=== PATIENT | female | born 1990 | race Caucasian/White ===

== ENCOUNTER 2017-02-25 01:59 | Emergency (ER) | payer OTHER ==
[~2017-02-25] VITALS: Ht 170.2 cm; Wt 81.6 kg
--- NOTE | 2017-02-25 02:04 | PHYS DOC ---
Adult General Chief Complaint Chief Complaint: FLANK PAIN HPI HPI Patient is a 26 year old female who presents with fully pain. She states it started Tuesday and then yesterday it was getting worse. She states it hurts more when she urinates. She denies any dysuria. She states last night which went to bed is been getting worse. She feels nauseated. She took Tylenol for discomfort. She states she's never had a kidney stone before in her mom's had him. She denies any abdominal discomfort, vaginal bleeding or discharge. Review of Systems Review of Systems Constitutional: Denies fever or chills [] Eyes: Denies change in visual acuity, redness, or eye pain [] HENT: Denies nasal congestion or sore throat [] Respiratory: Denies cough or shortness of breath [] Cardiovascular: No additional information not addressed in HPI [] GI: Denies abdominal pain, nausea, vomiting, bloody stools or diarrhea [] : Denies dysuria or hematuria [] Musculoskeletal: Denies joint pain, positive for right-sided flank pain [] Integument: Denies rash or skin lesions [] Neurologic: Denies headache, focal weakness or sensory changes [] Endocrine: Denies polyuria or polydipsia [] All other systems were reviewed and found to be within normal limits, except as documented in this note. Current Medications Current Medications Current Medications Medications (Trade) Dose Ordered Sig/Tucker Start Time Stop Time Status Last Admin Dose Admin Info (Do NOT chart on this entry -- for MONITORING) 1 each PRN DAILY PRN 02/25/17 03:00 02/27/17 02:59 Iohexol (Omnipaque 300 Mg/ml) 75 ml 1X ONCE 02/25/17 03:30 02/25/17 03:31 DC 02/25/17 03:23 75 ML Morphine Sulfate 4 mg PRN Q15MIN PRN 02/25/17 02:30 02/26/17 02:29 02/25/17 02:41 4 MG Ondansetron HCl (Zofran) 4 mg 1X ONCE 02/25/17 03:00 02/25/17 03:01 DC 02/25/17 02:40 4 MG Sodium Chloride 1,000 ml @ 1,000 mls/hr Q1H 02/25/17 03:00 02/25/17 03:59 DC 02/25/17 02:41 1,000 MLS/HR Allergies Allergies Allergies Coded Allergies Type Severity Reaction Last Updated Verified Penicillins Allergy Intermediate RASH 02/25/17 Yes hydromorphone Allergy Intermediate RASH 02/25/17 Yes avocado Allergy Mild 02/25/17 Yes banana Allergy Mild 02/25/17 Yes peanut Allergy Mild 02/25/17 Yes tomato Allergy Mild 02/25/17 Yes Physical Exam Physical Exam Constitutional: Well developed, well nourished, no acute distress, non-toxic appearance. [] HENT: Normocephalic, atraumatic, bilateral external ears normal, oropharynx moist, no oral exudates, nose normal. [] Eyes: PERRLA, EOMI, conjunctiva normal, no discharge. [] Neck: Normal range of motion, no tenderness, supple, no stridor. [] Cardiovascular:Heart rate regular rhythm, no murmur [] Lungs & Thorax: Bilateral breath sounds clear to auscultation [] Abdomen: Bowel sounds normal, soft, no tenderness, no masses, no pulsatile masses. [] Skin: Warm, dry, no erythema, no rash. [] Back: No tenderness, positive for right sided CVA tenderness. [] Extremities: No tenderness, no cyanosis, no clubbing, ROM intact, no edema. [] Neurologic: Alert and oriented X 3, normal motor function, normal sensory function, no focal deficits noted. [] Psychologic: Affect normal, judgement normal, mood normal. [] Current Patient Data Vital Signs Vital Signs Date Time Temp Pulse Resp B/P (MAP) Pulse Ox O2 Delivery O2 Flow Rate FiO2 02/25/17 02:41 22 99 Room Air 02/25/17 02:09 97.5 93 121/77 (92) 97.5 Lab Values Laboratory Tests Test 02/25/17 02:10 02/25/17 02:14 02/25/17 02:29 Urine Collection Type Unknown Urine Color Yellow Urine Clarity Clear Urine pH 5.5 Urine Specific [place] 1.025 Urine Protein Negative mg/dL (NEG-TRACE) Urine Glucose (UA) Negative mg/dL (NEG) Urine Ketones (Stick) Negative mg/dL (NEG) Urine Blood Negative (NEG) Urine Nitrite Negative (NEG) Urine Bilirubin Negative (NEG) Urine Urobilinogen Dipstick 0.2 mg/dL (0.2 mg/dL) Urine Leukocyte Esterase Negative (NEG) Urine RBC 0 /HPF (0-2) Urine WBC Occ /HPF (0-4) Urine Squamous Epithelial Cells Few /LPF Urine Bacteria Few /HPF (0-FEW) Urine Mucus Mod /LPF POC Urine HCG, Qualitative Hcg negative (Negative) White Blood Count 10.3 x10^3/uL (4.0-11.0) Red Blood Count 4.34 x10^6/uL (3.50-5.40) Hemoglobin 13.0 g/dL (12.0-15.5) Hematocrit 39.2 % (36.0-47.0) Mean Corpuscular Volume 90 fL (79-100) Mean Corpuscular Hemoglobin 30 pg (25-35) Mean Corpuscular Hemoglobin Concent 33 g/dL (31-37) Red Cell Distribution Width 13.2 % (11.5-14.5) Platelet Count 354 x10^3/uL (140-400) Neutrophils (%) (Auto) 57 % (31-73) Lymphocytes (%) (Auto) 34 % (24-48) Monocytes (%) (Auto) 6 % (0-9) Eosinophils (%) (Auto) 3 % (0-3) Basophils (%) (Auto) 1 % (0-3) Neutrophils # (Auto) 5.8 x10^3uL (1.8-7.7) Lymphocytes # (Auto) 3.5 x10^3/uL (1.0-4.8) Monocytes # (Auto) 0.6 x10^3/uL (0.0-1.1) Eosinophils # (Auto) 0.3 x10^3/uL (0.0-0.7) Basophils # (Auto) 0.1 x10^3/uL (0.0-0.2) Sodium Level 141 mmol/L (136-145) Potassium Level 3.6 mmol/L (3.5-5.1) Chloride Level 103 mmol/L (98-107) Carbon Dioxide Level 29 mmol/L (21-32) Anion Gap 9 (6-14) Blood Urea Nitrogen 15 mg/dL (7-20) Creatinine 0.7 mg/dL (0.6-1.0) Estimated GFR (Cockcroft-Gault) 102.0 Glucose Level 89 mg/dL (70-99) Calcium Level 8.7 mg/dL (8.5-10.1) Total Bilirubin 0.4 mg/dL (0.2-1.0) Direct Bilirubin 0.1 mg/dL (0.0-0.2) Aspartate Amino Transferase (AST) 19 U/L (15-37) Alanine Aminotransferase (ALT) 23 U/L (14-59) Alkaline Phosphatase 67 U/L (46-116) Total Protein 8.0 g/dL (6.4-8.2) Albumin 3.8 g/dL (3.4-5.0) Laboratory Tests 02/25/17 02:29 Laboratory Tests 02/25/17 02:29 EKG EKG [] Radiology/Procedures Radiology/Procedures [facility] [address] [place] [address] IMAGING REPORT Signed PATIENT: MCKENZIE GREENWOOD ACCOUNT: [id number] : 1990 LOCATION: ER AGE: 26 SEX: F EXAM STATUS: REG ER ORD. PHYSICIAN: JEROME CHAIDEZ MD REASON: right flank pain PROCEDURE: CT ABD PELV W/ IV CONTRST ONLY INDICATION: right flank pain; Omni 300, 75ml COMPARISON: None. TECHNIQUE: Axial CT images were obtained through the abdomen and pelvis with intravenous contrast. One or more of the following individualized dose reduction techniques were utilized for this examination: 1. Automated exposure control; 2. Adjustment of the mA and/or kV according to patient size; 3. Use of iterative reconstruction technique. FINDINGS: Chest Base: Partially imaged without gross abnormality. Vessels: No abdominal aortic aneurysm. Liver/Biliary: Postcholecystectomy changes. Pancreas: No peripancreatic edema. Spleen: Normal. Kidneys/Adrenal: No hydronephrosis. Bladder: Largely decompressed. GI: The appendix does not appear grossly inflamed. No dilated loops of bowel to suggest obstruction. The prominent lymph nodes in the bilateral groin. Mild lucency through left transverse process of L1. Pars defects L5. IMPRESSION: 1. The appendix does not appear grossly inflamed. 2. No hydronephrosis. 3. Mild lucency left transverse process of L5. This could be congenital but would correlate with symptoms in the region to ensure that this is not from a fracture. Electronically signed by: Mary Reyes MD (02/25/2017 3:52 AM) [facility] DICTATED and SIGNED BY: MARY REYES MD DATE: 02/25/17 0344 CC: JEROME CHAIDEZ MD; CAMDEN RANDLE MD ~ Impressions: Right-sided flank pain Course & Med Decision Making Course & Med Decision Making Pertinent Labs and Imaging studies reviewed. (See chart for details) Labs, urine, CT abdomen and pelvis did not show anything acute. She was sleeping until she moved and this woke her up. She is tender palpation over this right flank area therefore I will give her some Flexeril to this is a muscle spasm. I spoke to her regarding the fact that Flexeril can make you sleepy and don't drink alcohol or drive or taking the medicine. At this point she is comfortable going home and seen and if Flexeril doesn't help. I've instructed return back to ER if her symptoms get worse or she has other concerns. Dragon Disclaimer Dragon Disclaimer This electronic medical record was generated, in whole or in part, using a voice recognition dictation system. Departure Departure Impression: Primary Impression: Flank pain Disposition: 01 HOME, SELF-CARE Condition: STABLE Patient Instructions: Flank Pain Additional Instructions: The CAT scan her abdomen pelvis in addition to urine and blood work did not show any acute abnormality's. At this point we can try some muscle relaxants to see if it is a muscle spasms causing her pain. Your being discharged home with Flexeril 10 mg 1 tablet every 8 hours. It is makes her too sleepy to take one tablet before you go to bed and skip the doses during the day or you can try to break the tablets in half and take him every 8 hours. If your pain gets worse you have any numbness tingling, high fevers, uncontrolled nausea vomiting or other concerns please return back to emergency department. Otherwise she should follow-up with primary care physician within the next couple days. Scripts Cyclobenzaprine Hcl (CYCLOBENZAPRINE HCL) 10 Mg Tablet 1 TAB PO TID, #30 TAB Prov: JEROME CHAIDEZ MD 02/25/17 JEROME CHAIDEZ MD Feb 25, 2017 02:04
[2017-02-25 02:20] LABS: BILIRUBIN,URINE NEGATIVE (NEG); GLUCOSE,URINE NEGATIVE (NEG); NITRITE,URINE NEGATIVE (NEG); PH,URINE 5.5; PROTEIN,URINE NEGATIVE (NEG-TRACE); UROBILINOGEN,URINE 0.2 mg/dL (0.2 mg/dL)
[2017-02-25] MEDS ORDERED: MORPHINE SULFATE 4 MG/ML DISP.SYRIN. IV/SQ PRN (02:30)
[2017-02-25 02:36] LABS: BACTERIA,URINE FEW /HPF (0-FEW); RBC,URINE 0 /HPF (0-2); SQUAMOUS EPITHELIAL CELL,UR FEW /LPF; WBC,URINE OCC /HPF (0-4)
[2017-02-25 02:45] LABS: BASO # 0.1 x10^3/uL (0.0-0.2); BASO % 1 % (0-3); EOS % 3 % (0-3); HEMATOCRIT 39.2 % (36.0-47.0); LYMPH # 3.5 x10^3/uL (1.0-4.8); LYMPH % 34 % (24-48); MEAN CORPUSCULAR HEMOGLOBIN 30 pg (25-35); MEAN CORPUSCULAR HGB CONC 33 g/dL (31-37); MEAN CORPUSCULAR VOLUME 90 fL (79-100); MONO % 6 % (0-9); NEUT % 57 % (31-73); PLATELET COUNT 354 x10^3/uL (140-400); RED BLOOD COUNT 4.34 x10^6/uL (3.50-5.40); RED CELL DISTRIBUTION WIDTH 13.2 % (11.5-14.5); WHITE BLOOD COUNT 10.3 x10^3/uL (4.0-11.0)
[2017-02-25 02:52] LABS: CALCIUM 8.7 mg/dL (8.5-10.1); CREATININE 0.7 mg/dL (0.6-1.0); POTASSIUM 3.6 mmol/L (3.5-5.1)
[2017-02-25 02:58] LABS: ALBUMIN 3.8 g/dL (3.4-5.0); DIRECT BILIRUBIN 0.1 mg/dL (0.0-0.2); TOTAL BILIRUBIN 0.4 mg/dL (0.2-1.0)
[2017-02-25] MEDS ORDERED: CONTRAST GIVEN MC PRN (03:00)
[2017-02-25] MEDS ORDERED: ONDANSETRON PF 4 MG/2 ML VIAL. IV ONE (03:00)
[2017-02-25] MEDS ORDERED: IV NORMAL SALINE 1000ML BAG 1,000 ML IV SCH (03:00)
[2017-02-25] MEDS ORDERED: IOHEXOL 300 MG/ML 100ML VIAL. IV ONE (03:30)
--- NOTE | 2017-02-25 03:55 | RAD ---
INDICATION: right flank pain; Omni 300, 75ml COMPARISON: None. TECHNIQUE: Axial CT images were obtained through the abdomen and pelvis with intravenous contrast. One or more of the following individualized dose reduction techniques were utilized for this examination: 1. Automated exposure control; 2. Adjustment of the mA and/or kV according to patient size; 3. Use of iterative reconstruction technique. FINDINGS: Chest Base: Partially imaged without gross abnormality. Vessels: No abdominal aortic aneurysm. Liver/Biliary: Postcholecystectomy changes. Pancreas: No peripancreatic edema. Spleen: Normal. Kidneys/Adrenal: No hydronephrosis. Bladder: Largely decompressed. GI: The appendix does not appear grossly inflamed. No dilated loops of bowel to suggest obstruction. The prominent lymph nodes in the bilateral groin. Mild lucency through left transverse process of L1. Pars defects L5. IMPRESSION: 1. The appendix does not appear grossly inflamed. 2. No hydronephrosis. 3. Mild lucency left transverse process of L5. This could be congenital but would correlate with symptoms in the region to ensure that this is not from a fracture. Electronically signed by: Sahil Lam MD (02/25/2017 3:52 AM) [facility]
[2017-02-25] MEDS ORDERED: CYCL10TA2 PO (05:10)
[2017-02-25 05:15] VITALS: BP 114/65
[2017-02-25] MEDS ORDERED: CYCLOBENZAPRINE 10 MG TABLET. PO ONE (05:30)
== END 2017-02-25 05:17 | disposition home or self-care (01) ==
LOC: ER 01:59
DX: R10.9 Unspecified abdominal pain (principal); Z88.0 Allergy status to penicillin; Z88.8 Allergy status to other drugs, medicaments and biological substances; Z91.018 Allergy to other foods
CPT/HCPCS: 36415; 74177; 80048; 80076; 81001; 81025; 85025; 96361; 96374; 96375; 99285; J2270; J2405; J7030; Q9967; 96376